=== PATIENT | female | born 1955 | race Caucasian/White ===

== ENCOUNTER 2021-08-28 09:22 | Outpatient (CLI) | payer MEDICARE, MEDICAID | END 2021-08-28 09:23 | disposition home or self-care (01) | LOC: CSHWCC 09:22 | PROVIDERS: ATTEND Nurse Practitioner Family | DX: L89.313 Pressure ulcer of right buttock, stage 3 (principal); L89.323 Pressure ulcer of left buttock, stage 3 ==

== ENCOUNTER 2022-03-19 08:54 | Outpatient (CLI) | payer MEDICARE, MEDICAID | END 2022-03-19 08:55 | disposition home or self-care (01) | LOC: CSHWCC 08:54 | PROVIDERS: ATTEND Preventive Medicine Undersea and Hyperbaric Medicine | DX: E11.621 Type 2 diabetes mellitus with foot ulcer (principal); L97.412 Non-pressure chronic ulcer of right heel and midfoot with fat layer exposed | CPT/HCPCS: 36416; 87070; 87077; 87186; 87205; 97597 ==

== ENCOUNTER 2022-03-28 08:44 | Outpatient (CLI) | payer OTHER, MEDICAID | END 2022-03-28 08:45 | disposition home or self-care (01) | LOC: CSHWCC 08:44 | PROVIDERS: ATTEND Preventive Medicine Undersea and Hyperbaric Medicine | DX: E11.621 Type 2 diabetes mellitus with foot ulcer (principal); L97.412 Non-pressure chronic ulcer of right heel and midfoot with fat layer exposed | CPT/HCPCS: 29445 ==

== ENCOUNTER 2022-03-28 16:27 | Outpatient (CLI) | payer OTHER, MEDICAID, MEDICARE | END 2022-03-28 16:28 | disposition home or self-care (01) | LOC: CSHWCC 16:27 | PROVIDERS: ATTEND Preventive Medicine Undersea and Hyperbaric Medicine | DX: E11.621 Type 2 diabetes mellitus with foot ulcer (principal); L97.412 Non-pressure chronic ulcer of right heel and midfoot with fat layer exposed ==

== ENCOUNTER 2022-03-29 08:35 | Outpatient (CLI) | payer OTHER, MEDICAID, MEDICARE | END 2022-03-29 08:36 | disposition home or self-care (01) | LOC: CSHWCC 08:35 | PROVIDERS: ATTEND Preventive Medicine Undersea and Hyperbaric Medicine | DX: E11.621 Type 2 diabetes mellitus with foot ulcer (principal); L97.412 Non-pressure chronic ulcer of right heel and midfoot with fat layer exposed | CPT/HCPCS: 97139; G0463; 99212 ==

== ENCOUNTER 2022-04-04 10:56 | Outpatient (CLI) | payer OTHER, MEDICAID, MEDICARE | END 2022-04-04 10:57 | disposition home or self-care (01) | LOC: CSHWCC 10:56 | PROVIDERS: ATTEND Preventive Medicine Undersea and Hyperbaric Medicine | DX: E11.621 Type 2 diabetes mellitus with foot ulcer (principal); L97.412 Non-pressure chronic ulcer of right heel and midfoot with fat layer exposed | CPT/HCPCS: 97597 ==

== ENCOUNTER 2022-04-04 11:53 | Outpatient (CLI) | payer OTHER, MEDICAID | END 2022-04-04 11:54 | disposition home or self-care (01) | LOC: CSHRAD 11:53 | PROVIDERS: ATTEND Preventive Medicine Undersea and Hyperbaric Medicine | DX: E11.621 Type 2 diabetes mellitus with foot ulcer (principal); L97.412 Non-pressure chronic ulcer of right heel and midfoot with fat layer exposed ==

== ENCOUNTER 2022-04-18 11:29 | Outpatient (CLI) | payer OTHER, MEDICARE | END 2022-04-18 11:30 | disposition home or self-care (01) | LOC: CSHWCC 11:29 | PROVIDERS: ATTEND Preventive Medicine Undersea and Hyperbaric Medicine | DX: E11.621 Type 2 diabetes mellitus with foot ulcer (principal); L97.412 Non-pressure chronic ulcer of right heel and midfoot with fat layer exposed | CPT/HCPCS: 97139; 97597; G0463; 99212 ==